=== PATIENT | female | born 1995 | race Caucasian/White ===

== ENCOUNTER 2018-01-23 23:13 | Emergency (ER) | payer OTHER ==
[~2018-01-23] VITALS: Ht 152.4 cm; Wt 52.6 kg
[2018-01-23 23:19] VITALS: Ht 152.4 cm; Wt 52.6 kg
[2018-01-24 00:18] LABS: BASOPHIL % 0.1 % (0-2); PLATELET COUNT 261 x10^3mcL (130-400); RED CELL DISTRIBUTION WIDTH 13.6 % (11.5-14.5)
[2018-01-24 00:36] LABS: CALCIUM 8.8 mg/dL (8.5-10.1); CARBON DIOXIDE 20.9 mmol/L (21-32); CHLORIDE SERUM 102 mmol/L (98-107); CREATININE SERUM 0.8 mg/dL (0.6-1.0); GFR1 > 60 mL/min; GLUCOSE SERUM 213 mg/dL (74-106); POTASSIUM SERUM 3.6 mmol/L (3.5-5.1); SODIUM SERUM 135 mmol/L (136-145)
[2018-01-24 00:42] LABS: ALBUMIN 3.9 g/dL (3.4-5.0); ALKALINE PHOSPHATASE 53 U/L (46-116); ALT/SGPT 24 U/L (14-59); AST/SGOT 14 U/L (15-37); BILIRUBIN TOTAL 0.3 mg/dL (0.20-1.00); TOTAL PROTEIN, SERUM 7.7 g/dL (6.4-8.2)
[2018-01-24 02:27] VITALS: BP 127/80
== END 2018-01-24 02:27 | disposition left against medical advice (07) ==
LOC: ED 23:13
PROVIDERS: Specialist
DX: G89.29 Other chronic pain (principal); M54.31 Sciatica, right side
CPT/HCPCS: J1170; J1885; J2405; J2930

== ENCOUNTER 2018-12-23 00:26 | Emergency (ER) | payer OTHER ==
[~2018-12-23] VITALS: Ht 152.4 cm; Wt 60.3 kg
[2018-12-23 00:33] VITALS: Ht 152.4 cm; Wt 60.3 kg
[2018-12-23 02:11] VITALS: BP 133/71
== END 2018-12-23 02:11 | disposition home or self-care (01) ==
LOC: ED 00:26
DX: S30.0XXA Contusion of lower back and pelvis, initial encounter (principal); W18.39XA Other fall on same level, initial encounter; Y93.89 Activity, other specified; Y92.89 Other specified places as the place of occurrence of the external cause; Y99.8 Other external cause status
CPT/HCPCS: Q0092